=== PATIENT | female | born 1970 | race Caucasian/White ===

== ENCOUNTER → 2017-06-02 | Outpatient (CLI) | payer BC ==
[2017-06-02 18:46] LABS: Total Protein,CSF 36 mg/dL (12-60)
[2017-06-02 19:00] LABS: CSF Tube Number 4
[2017-06-02 19:01] LABS: Appearance,CSF Clear; CSF Tube Volume 1.5; Nucleated Cells, CSF 0 u/L (0-5); Red Blood Cell,CSF 3 u/L (0-10)
[2017-06-04 14:32] LABS: IgG - CSF 1.3 mg/dL (0.0 - 3.4); IgG/Albumin Index (CSF) 0.51 (0.00 - 0.77)
== END ==
LOC: LABWHC1 11:02
PROVIDERS: ATTEND Psychiatry & Neurology Pain Medicine
DX: H53.8 Other visual disturbances (principal); R42 Dizziness and giddiness; R20.8 Other disturbances of skin sensation
CPT/HCPCS: 36415; 82040; 82042; 82784; 83873; 83916; 84157; 87476; 88108; 89050

== ENCOUNTER → 2017-07-09 | Outpatient (CLI) | payer BC ==
[2017-07-09 18:12] LABS: Anti-DNA, DS unit <1.0 IU/mL; Cyclic Citrullinated Pep IgG NEGATIVE (NEGATIVE); DNA Double-Stranded NEGATIVE (NEGATIVE); RNP <0.2 AI; Scleroderma SC-70 Ab 0.3 AI
== END | disposition home or self-care (01) ==
LOC: LABWHC1 11:09
PROVIDERS: ATTEND Psychiatry & Neurology Pain Medicine
DX: M25.50 Pain in unspecified joint (principal)
CPT/HCPCS: 36415; 83516; 86038; 86200; 86225; 86235